=== PATIENT | male | born 1995 | race African-American/Black ===

== ENCOUNTER 2021-08-25 09:24 | Inpatient (IN) ==
[2021-08-25 10:22] LABS: Basophils % 0.4 % (0.0-0.8); Eosinophils # 0.1 10*3/uL (0.0-0.87); Eosinophils % 1.5 % (0.00-10.9); Hematocrit 32.6 VOL% (42.0-52.0); Hemoglobin 9.8 GM/DL (14.0-18.0); Immature Granulocytes % 0.6 %; Immature Granulocytes Absolute 0.06 #; Lymphocytes # 3.6 10*3/uL (1.4-4.0); Lymphocytes % 36.8 % (21.2-54.2); Mean Corpuscular HGB Conc 30.1 GM/DL (32-36); Mean Corpuscular Volume 89.8 FL (87-102); Mean Platelet Volume 10.4 FL (9.6-12.0); Monocytes % 7.9 % (1.7-12.7); Neutrophils % 52.8 % (38.7-73.9); Platelet Count 358 T/CUMM (130-400); Red Blood Count 3.63 MC/CUMM (3.8-5.5); Red Cell Distribution Width 14.3 % (9.3-17.3); White Blood Count 9.7 T/CUMM (4-12)
[2021-08-25] MEDS ORDERED: FUROSEMIDE 40 MG/4 ML VIAL IV STA (10:22)
[2021-08-25 10:33] LABS: INR 0.9; PT Patient Result 10.3 SECS (10.5-12.0)
[2021-08-25 10:57] LABS: Alanine Aminotransferase 182 U/L (16-61); Albumin 2.1 G/DL (3.4-5.0); Alkaline Phosphatase 138 U/L (45-117); Aspartate Amino Transferase 208 U/L (0-37); Bilirubin,Total < 0.39 MG/DL (0.20-1.00); Blood Urea Nitrogen 67 MG/DL (7-18); Calcium 8.3 MG/DL (8.5-10.1); Carbon Dioxide 20 MMOL/L (21-32); Estimated Glom Filtration Rate 49 ML/MIN; Glucose 124 MG/DL (74-106); Osmolality,Calculated 298.4 MOS/KG (273-304); Sodium 140 MMOL/L (136-145); Total Protein 6.6 G/DL (6.4-8.2)
[2021-08-25 10:59] LABS: Potassium 6.7 MMOL/L (3.5-5.1)
[2021-08-25] MEDS ORDERED: CALCIUM CHLORIDE 1,000 MG/10 ML SYRINGE IV STA (11:09)
[2021-08-25] MEDS ORDERED: SODIUM BICARBONATE 50 MEQ/50 ML VIAL IV STA (11:10)
[2021-08-25] MEDS ORDERED: GLUCAGON 1 MG VIAL IM PRN (13:07)
[2021-08-25] MEDS ORDERED: hydrALAZINE 20 MG/1 ML VIAL IV PRN (13:07)
[2021-08-25] MEDS ORDERED: ONDANSETRON 4 MG/2 ML VIAL IV PRN (13:07)
[2021-08-25] MEDS ORDERED: BISACODYL 5 MG TABLET PO PRN (13:07)
[2021-08-25] MEDS ORDERED: DEXTROSE 10% 25 GM/250 ML BAG IV PRN ×2 (13:07)
[2021-08-25] MEDS: METOPROLOL SUCCINATE XL 100 MG TABLET PO SCH (14:01)
[2021-08-25] MEDS: ENOXAPARIN 40 MG/0.4 ML SYRINGE SUBCUT SCH (14:01)
[2021-08-25] MEDS ORDERED: SODIUM POLYSTYRENE SULFATE 15 GM/60 ML BOTTLE PO STA (14:01)
[2021-08-25] MEDS: PANTOPRAZOLE 40 MG TABLET PO SCH (14:01)
[2021-08-25 14:20] LABS: Bacteria,Urine Occasional /HPF (Few); RBC,Urine 7 /HPF (0-4); Squamous Epithelial Cell,Urine Occasional /HPF (0-10)
[2021-08-25 14:22] LABS: Bilirubin,Urine Negative (Negative); Blood, Urine Small mg/dL (Negative); Glucose,Urine (UA) Negative (Negative); Ketones,Urine Negative (Negative); Nitrite,Urine Negative (Negative); Protein,Urine 100 mg/dL (Negative); Urine Appearance Clear (Clear); Urine Color Yellow (Yellow); Urine Specific Gravity 1.025 (1.001-1.035)
[2021-08-25 14:23] LABS: Urine Urobilinogen 0.2 eU/dL (<2.0)
[2021-08-25] MEDS: INSULIN LISPRO 100 UNIT/ML SUBCUT SCH ×2 (18:08→23:01)
[2021-08-25] MEDS: DOCUSATE SODIUM 100 MG CAPSULE PO SCH (22:59)
[2021-08-25] MEDS: FUROSEMIDE 40 MG/4 ML VIAL IV SCH (23:04)
[2021-08-25] MEDS: INSULIN NPH/REGULAR 70/30 100 UNIT/ML SUBCUT SCH (23:45)
[2021-08-26 03:47] LABS: Hepatitis B Core IgM Quant 0.06 Index; Hepatitis B Surface Ag Quant 0.16 Index; Hepatitis B Surface Ag Result Non-Reactive (NonReactive); Hepatitis C Virus Ab Quant 0.06 Index; Hepatitis C Virus Ab Result Non-Reactive (NonReactive)
[2021-08-26 04:07] LABS: Albumin 1.7 G/DL (3.4-5.0); Bilirubin,Total 0.5 MG/DL (0.20-1.00); Calcium 8.6 MG/DL (8.5-10.1); Osmolality,Calculated 302.8 MOS/KG (273-304); Potassium 5.1 MMOL/L (3.5-5.1); Risk Ratio 1.86; Thyroid Stimulating Hormone 1.92 uIU/ml (0.358-3.74); Total Protein 5.6 G/DL (6.4-8.2); VLDL Cholesterol 10.6 MG/DL
[2021-08-26] MEDS: METOPROLOL SUCCINATE XL 100 MG TABLET PO SCH (09:46)
[2021-08-26] MEDS: PANTOPRAZOLE 40 MG TABLET PO SCH (09:46)
[2021-08-26] MEDS: DOCUSATE SODIUM 100 MG CAPSULE PO SCH ×2 (09:46→20:41)
[2021-08-26] MEDS: FUROSEMIDE 40 MG/4 ML VIAL IV SCH ×2 (09:48→20:41)
[2021-08-26] MEDS: INSULIN NPH/REGULAR 70/30 100 UNIT/ML SUBCUT SCH ×3 (11:06→20:41)
[2021-08-26] MEDS: INSULIN LISPRO 100 UNIT/ML SUBCUT SCH ×4 (11:07→20:41)
[2021-08-26 12:44] LABS: Barbiturates Screen,Urine Negative (Negative); Benzodiazepines Screen,Urine Negative (Negative); Cannabinoid Screen,Urine Negative (Negative); Opiate Screen,Urine Negative (Negative); Phencyclidine Screen,Urine Negative (Negative)
[2021-08-26] MEDS: metOLazone 5 MG TABLET PO SCH (13:11)
[2021-08-26] MEDS: ENOXAPARIN 40 MG/0.4 ML SYRINGE SUBCUT SCH (15:51)
[2021-08-26] MEDS: hydrALAZINE 25 MG TABLET PO SCH ×2 (15:51→20:41)
[2021-08-27 05:28] LABS: Basophils # 0.1 10*3/uL (0.0-0.2); Basophils % 0.7 % (0.0-0.8); Eosinophils # 0.3 10*3/uL (0.0-0.87); Eosinophils % 2.7 % (0.00-10.9); Hematocrit 33.6 VOL% (42.0-52.0); Hemoglobin 10.3 GM/DL (14.0-18.0); Immature Granulocytes % 0.4 %; Immature Granulocytes Absolute 0.04 #; Lymphocytes # 4.9 10*3/uL (1.4-4.0); Lymphocytes % 52.7 % (21.2-54.2); Mean Corpuscular HGB Conc 30.7 GM/DL (32-36); Mean Corpuscular Volume 88.9 FL (87-102); Mean Platelet Volume 10.8 FL (9.6-12.0); Monocytes % 6.4 % (1.7-12.7); Neutrophils % 37.1 % (38.7-73.9); Platelet Count 386 T/CUMM (130-400); Red Blood Count 3.78 MC/CUMM (3.8-5.5); Red Cell Distribution Width 14.4 % (9.3-17.3); White Blood Count 9.2 T/CUMM (4-12)
[2021-08-27 05:47] LABS: Calcium 9.5 MG/DL (8.5-10.1); Potassium 5.2 MMOL/L (3.5-5.1)
[2021-08-27 05:51] LABS: Eosinophils 3 % (0-10); Hypochromia 1+; Lymphocytes 62 % (20-55); Microcytosis 1+; Platelet Estimate Adequate; Segmented Neutrophils 34 % (50-85); Total Cells Counted 100
[2021-08-27 05:53] LABS: Atypical Lymphocytes Few
[2021-08-27 05:59] LABS: Alanine Aminotransferase 105 U/L (16-61); Albumin 2.2 G/DL (3.4-5.0); Alkaline Phosphatase 125 U/L (45-117); Aspartate Amino Transferase 44 U/L (0-37); Bilirubin,Total < 0.39 MG/DL (0.20-1.00); Blood Urea Nitrogen 61 MG/DL (7-18); Calcium 9.1 MG/DL (8.5-10.1); Carbon Dioxide 24 MMOL/L (21-32); Estimated Glom Filtration Rate 51 ML/MIN; Glucose 96 MG/DL (74-106); Osmolality,Calculated 299.1 MOS/KG (273-304); Potassium 5.5 MMOL/L (3.5-5.1); Sodium 142 MMOL/L (136-145); Total Protein 6.9 G/DL (6.4-8.2)
[2021-08-27] MEDS ORDERED: METOPROLOL SUCCINATE XL 25 MG TABLET PO SCH (09:00)
[2021-08-27] MEDS ORDERED: lisinopriL 10 MG TABLET PO SCH (09:00)
[2021-08-27] MEDS: PANTOPRAZOLE 40 MG TABLET PO SCH (09:19)
[2021-08-27] MEDS: DOCUSATE SODIUM 100 MG CAPSULE PO SCH ×2 (09:19→21:28)
[2021-08-27] MEDS: metOLazone 5 MG TABLET PO SCH (09:19)
[2021-08-27] MEDS: METOPROLOL SUCCINATE XL 25 MG TABLET PO SCH (09:19)
[2021-08-27] MEDS: ISOSORBIDE MONONITRATE 30 MG TABLET PO SCH (09:19)
[2021-08-27] MEDS: hydrALAZINE 25 MG TABLET PO SCH ×3 (09:19→21:28)
[2021-08-27] MEDS: FUROSEMIDE 40 MG/4 ML VIAL IV SCH (09:19)
[2021-08-27] MEDS: INSULIN LISPRO 100 UNIT/ML SUBCUT SCH ×4 (09:20→21:28)
[2021-08-27] MEDS: INSULIN NPH/REGULAR 70/30 100 UNIT/ML SUBCUT SCH (09:20)
[2021-08-27] MEDS: FUROSEMIDE 40 MG TABLET PO SCH (15:21)
[2021-08-27] MEDS: ENOXAPARIN 40 MG/0.4 ML SYRINGE SUBCUT SCH (15:21)
[2021-08-27] MEDS: SODIUM ZIRCONIUM CYCLOSILICATE 10 GM PACK PO SCH (17:01)
[2021-08-28 04:43] LABS: Basophils % 0.4 % (0.0-0.8); Eosinophils # 0.2 10*3/uL (0.0-0.87); Eosinophils % 2.2 % (0.00-10.9); Hematocrit 27.8 VOL% (42.0-52.0); Hemoglobin 8.6 GM/DL (14.0-18.0); Lymphocytes # 4.7 10*3/uL (1.4-4.0); Lymphocytes % 44.8 % (21.2-54.2); Mean Corpuscular HGB Conc 30.9 GM/DL (32-36); Mean Corpuscular Volume 87.7 FL (87-102); Mean Platelet Volume 10.3 FL (9.6-12.0); Monocytes % 7.9 % (1.7-12.7); Neutrophils % 43.7 % (38.7-73.9); Platelet Count 309 T/CUMM (130-400); Red Blood Count 3.17 MC/CUMM (3.8-5.5); Red Cell Distribution Width 14.1 % (9.3-17.3); White Blood Count 10.5 T/CUMM (4-12)
[2021-08-28 05:05] LABS: Calcium 8.4 MG/DL (8.5-10.1); Osmolality,Calculated 307.3 MOS/KG (273-304); Potassium 5.6 MMOL/L (3.5-5.1)
[2021-08-28 05:13] LABS: Alanine Aminotransferase 65 U/L (16-61); Albumin 1.7 G/DL (3.4-5.0); Alkaline Phosphatase 105 U/L (45-117); Aspartate Amino Transferase 25 U/L (0-37); Bilirubin,Total < 0.39 MG/DL (0.20-1.00); Blood Urea Nitrogen 70 MG/DL (7-18); Calcium 8.3 MG/DL (8.5-10.1); Carbon Dioxide 23 MMOL/L (21-32); Estimated Glom Filtration Rate 57 ML/MIN; Glucose 224 MG/DL (74-106); Osmolality,Calculated 306.4 MOS/KG (273-304); Potassium 5.6 MMOL/L (3.5-5.1); Sodium 140 MMOL/L (136-145); Total Protein 5.6 G/DL (6.4-8.2)
[2021-08-28 05:15] LABS: Eosinophils 7 % (0-10); Hypochromia 1+; Lymphocytes 39 % (20-55); Segmented Neutrophils 48 % (50-85); Total Cells Counted 100
[2021-08-28 05:16] LABS: Microcytosis 1+; Ovalocytes Slight; Polychromasia Slight
[2021-08-28 05:17] LABS: Platelet Estimate Normal
[2021-08-28] MEDS: PANTOPRAZOLE 40 MG TABLET PO SCH (08:22)
[2021-08-28] MEDS: ASPIRIN EC 81 MG TABLET PO SCH (08:22)
[2021-08-28] MEDS: METOPROLOL SUCCINATE XL 25 MG TABLET PO SCH (08:23)
[2021-08-28] MEDS: ISOSORBIDE MONONITRATE 30 MG TABLET PO SCH (08:23)
[2021-08-28] MEDS: SODIUM ZIRCONIUM CYCLOSILICATE 10 GM PACK PO SCH ×2 (08:23→15:10)
[2021-08-28] MEDS: FUROSEMIDE 40 MG TABLET PO SCH ×2 (08:23→15:10)
[2021-08-28] MEDS: metOLazone 5 MG TABLET PO SCH (08:23)
[2021-08-28] MEDS: hydrALAZINE 25 MG TABLET PO SCH ×3 (08:23→21:40)
[2021-08-28] MEDS: DOCUSATE SODIUM 100 MG CAPSULE PO SCH ×2 (08:25→21:41)
[2021-08-28] MEDS: INSULIN LISPRO 100 UNIT/ML SUBCUT SCH ×2 (08:25→12:25)
[2021-08-28] MEDS: INSULIN NPH/REGULAR 70/30 100 UNIT/ML SUBCUT SCH (08:25)
[2021-08-28] MEDS ORDERED: SODIUM POLYSTYRENE SULFATE 15 GM/60 ML BOTTLE PO ONE (14:34)
[2021-08-28] MEDS: ENOXAPARIN 40 MG/0.4 ML SYRINGE SUBCUT SCH (15:11)
[2021-08-29 05:51] LABS: Alanine Aminotransferase 59 U/L (16-61); Albumin 1.7 G/DL (3.4-5.0); Alkaline Phosphatase 95 U/L (45-117); Aspartate Amino Transferase 26 U/L (0-37); Bilirubin,Total < 0.39 MG/DL (0.20-1.00); Blood Urea Nitrogen 69 MG/DL (7-18); Calcium 8.8 MG/DL (8.5-10.1); Carbon Dioxide 26 MMOL/L (21-32); Estimated Glom Filtration Rate 64 ML/MIN; Glucose 198 MG/DL (74-106); Osmolality,Calculated 306.3 MOS/KG (273-304); Potassium 4.6 MMOL/L (3.5-5.1); Sodium 141 MMOL/L (136-145); Total Protein 5.5 G/DL (6.4-8.2)
[2021-08-29 08:21] VITALS: BP 126/74
[2021-08-29] MEDS: FUROSEMIDE 40 MG TABLET PO SCH (08:40)
[2021-08-29] MEDS: DOCUSATE SODIUM 100 MG CAPSULE PO SCH (08:40)
[2021-08-29] MEDS: ASPIRIN EC 81 MG TABLET PO SCH (08:40)
[2021-08-29] MEDS: hydrALAZINE 25 MG TABLET PO SCH (08:40)
[2021-08-29] MEDS: metOLazone 5 MG TABLET PO SCH (08:40)
[2021-08-29] MEDS: METOPROLOL SUCCINATE XL 25 MG TABLET PO SCH (08:40)
[2021-08-29] MEDS: ISOSORBIDE MONONITRATE 30 MG TABLET PO SCH (08:40)
[2021-08-29] MEDS: PANTOPRAZOLE 40 MG TABLET PO SCH (08:40)
[2021-08-29] MEDS: SODIUM ZIRCONIUM CYCLOSILICATE 10 GM PACK PO SCH (08:41)
[2021-08-29] MEDS ORDERED: INSULIN NPH/REGULAR 70/30 100 UNIT/ML SUBCUT SCH (09:00)
== END 2021-08-29 11:29 | disposition home or self-care (01) | DRG 291 ==
LOC: N.ED 09:24 → SUATTDRO 13:07 → N.EDINP 13:07 → N.TELEN 08-26 08:41
PROVIDERS: ADMIT Internal Medicine; ATTEND Emergency Medicine